=== PATIENT | male | born 1935 | race Caucasian/White ===

== ENCOUNTER 2017-12-12 11:01 | Inpatient (IN) | payer MEDICARE, BC ==
[~2017-12-12] VITALS: Ht 170.2 cm; Wt 82.0 kg
[~2017-12-12 11:01] MED LIST: ACIDOPHILUS PO; ALBUTERO3 IN; AUGMENTIN875TAB OR; AZITHROMYCIN250 MG PO; BAYER LOW DOSE81 MG PO; BIOTUSSIN PO; FISH OIL1000 MG PO; IPRATROPIU0.5 MG/3 M IN; MUCINEX600 MG OR; NEBULIZER COMPRESSOR; PREDNISONE10 MG PO; ROBITUSSIN AC10 ML PO; SPIRIVA IN; TAMSULOSIN HCL0.4 MG PO; VANTIN200 M1 PO
[2017-12-12 11:34] LABS: HEMATOCRIT 48.3 % (39.0-50.0); HEMOGLOBIN 15.1 g/dl (14.0-18.0); IMMATURE GRANULOCYTES 0.2 % (0.0-1.0); MEAN CELL VOLUME 94.7 fL CALC (80.0-100.0); MEAN CORPUSCULAR HGB 29.6 pG CALC (26.0-32.0); MEAN CORPUSCULAR HGB CONC 31.3 g/L CALC (32.0-36.0); NEUT# 7.36 thou/uL (1.82-7.42); RED BLOOD COUNT 5.1 mill/uL (4.70-6.10); RED CELL DISTRI WIDTH 13.3 % (11.5-15.5)
[2017-12-12 11:57] LABS: ANION GAP 17 (6-22 (CALC)); BUN 21 mg/dL (8-23); BUN/CREATININE RATIO 24 (12-20 (CALC)); CARBON DIOXIDE 32 mmol/l (22-30); CHLORIDE 101 mmol/l (95-108); CREATININE 0.9 mg/dL (0.7-1.3); GFR > 60 ML/MIN (>=60 (CALC)); GFR FOR AFR.AMER. > 60 ML/MIN (>=60 (CALC)); POTASSIUM 4.6 mmol/l (3.5-5.1); SODIUM 145 mmol/l (137-146)
[2017-12-12 12:58] LABS: INFLUENZA A NONE DETECTED (NONE DETECT); INFLUENZA B NONE DETECTED (NONE DETECT)
[2017-12-12 15:54] VITALS: BP 144/74
[2017-12-12 17:59] VITALS: BP 138/70
[2017-12-12 19:00] VITALS: BP 141/61
[2017-12-12 20:59] VITALS: BP 125/61
[2017-12-12 22:00] VITALS: BP 139/62
[2017-12-13] VITALS (11 sets, daily range): BP systolic 108–156; BP diastolic 47–97
[2017-12-14] VITALS (12 sets, daily range): BP systolic 114–154; BP diastolic 47–79
[2017-12-14 02:57] LABS: URINE BILIRUBIN - DIPSTICK NEGATIVE (NEGATIVE); URINE BLOOD DIPSTICK NEGATIVE (NEGATIVE); URINE COLOR YELLOW; URINE GLUCOSE - DIPSTICK NEGATIVE (NEGATIVE); URINE KETONE NEGATIVE (NEGATIVE); URINE LEUK ESTERASE NEGATIVE (NEGATIVE); URINE NITRITE - DIPSTICK NEGATIVE (Negative); URINE PROTEIN - DIPSTICK NEGATIVE (NEG-TRACE); URINE UROBILINOGEN - DIPSTICK 0.2 E.U./dL (0.2)
[2017-12-14 02:59] LABS: URINE CLARITY CLEAR
[2017-12-14 05:45] LABS: HEMATOCRIT 43.1 % (39.0-50.0); HEMOGLOBIN 13.6 g/dl (14.0-18.0); MEAN CELL VOLUME 94.3 fL CALC (80.0-100.0); MEAN CORPUSCULAR HGB 29.8 pG CALC (26.0-32.0); MEAN CORPUSCULAR HGB CONC 31.6 g/L CALC (32.0-36.0); RED BLOOD COUNT 4.57 mill/uL (4.70-6.10); RED CELL DISTRI WIDTH 12.8 % (11.5-15.5)
[2017-12-14 05:59] LABS: ANION GAP 16 (6-22 (CALC)); BUN 33 mg/dL (8-23); BUN/CREATININE RATIO 39 (12-20 (CALC)); CARBON DIOXIDE 32 mmol/l (22-30); CHLORIDE 98 mmol/l (95-108); CREATININE 0.9 mg/dL (0.7-1.3); GFR > 60 ML/MIN (>=60 (CALC)); GFR FOR AFR.AMER. > 60 ML/MIN (>=60 (CALC)); SODIUM 141 mmol/l (137-146)
[2017-12-14 06:04] LABS: POTASSIUM 5.2 mmol/l (3.5-5.1)
[2017-12-15] VITALS (12 sets, daily range): BP systolic 144–180; BP diastolic 59–96
[2017-12-15 05:40] LABS: HEMATOCRIT 42.8 % (39.0-50.0); HEMOGLOBIN 13.5 g/dl (14.0-18.0); MEAN CELL VOLUME 94.7 fL CALC (80.0-100.0); MEAN CORPUSCULAR HGB 29.9 pG CALC (26.0-32.0); MEAN CORPUSCULAR HGB CONC 31.5 g/L CALC (32.0-36.0); RED BLOOD COUNT 4.52 mill/uL (4.70-6.10); RED CELL DISTRI WIDTH 13.1 % (11.5-15.5)
[2017-12-15 05:58] LABS: ANION GAP 14 (6-22 (CALC)); BUN 29 mg/dL (8-23); BUN/CREATININE RATIO 38 (12-20 (CALC)); CARBON DIOXIDE 35 mmol/l (22-30); CHLORIDE 99 mmol/l (95-108); CREATININE 0.8 mg/dL (0.7-1.3); GFR > 60 ML/MIN (>=60 (CALC)); GFR FOR AFR.AMER. > 60 ML/MIN (>=60 (CALC)); SODIUM 142 mmol/l (137-146)
[2017-12-16] VITALS (14 sets, daily range): BP systolic 128–176; BP diastolic 66–92
[2017-12-17] VITALS (12 sets, daily range): BP systolic 119–162; BP diastolic 58–96
[2017-12-17 04:31] LABS: HEMATOCRIT 43.7 % (39.0-50.0); HEMOGLOBIN 13.9 g/dl (14.0-18.0); MEAN CORPUSCULAR HGB 29.9 pG CALC (26.0-32.0); MEAN CORPUSCULAR HGB CONC 31.8 g/L CALC (32.0-36.0); RED BLOOD COUNT 4.65 mill/uL (4.70-6.10); RED CELL DISTRI WIDTH 12.9 % (11.5-15.5)
[2017-12-17 04:41] LABS: BUN 30 mg/dL (8-23); BUN/CREATININE RATIO 35 (12-20 (CALC)); CHLORIDE 96 mmol/l (95-108); CREATININE 0.9 mg/dL (0.7-1.3); GFR > 60 ML/MIN (>=60 (CALC)); GFR FOR AFR.AMER. > 60 ML/MIN (>=60 (CALC)); POTASSIUM 4.6 mmol/l (3.5-5.1); SODIUM 144 mmol/l (137-146)
[2017-12-17 04:48] LABS: ANION GAP 14 (6-22 (CALC)); CARBON DIOXIDE 39 mmol/l (22-30)
[2017-12-18] VITALS (12 sets, daily range): BP systolic 132–169; BP diastolic 60–96
[2017-12-18 05:30] LABS: ANION GAP 13 (6-22 (CALC)); BUN 27 mg/dL (8-23); BUN/CREATININE RATIO 33 (12-20 (CALC)); CHLORIDE 95 mmol/l (95-108); CREATININE 0.8 mg/dL (0.7-1.3); GFR > 60 ML/MIN (>=60 (CALC)); GFR FOR AFR.AMER. > 60 ML/MIN (>=60 (CALC)); POTASSIUM 4.6 mmol/l (3.5-5.1); SODIUM 143 mmol/l (137-146)
[2017-12-18 05:39] LABS: CARBON DIOXIDE 40 mmol/l (22-30)
[2017-12-18 05:53] LABS: HEMATOCRIT 44.3 % (39.0-50.0); HEMOGLOBIN 14.3 g/dl (14.0-18.0); MEAN CELL VOLUME 92.5 fL CALC (80.0-100.0); MEAN CORPUSCULAR HGB 29.9 pG CALC (26.0-32.0); MEAN CORPUSCULAR HGB CONC 32.3 g/L CALC (32.0-36.0); RED BLOOD COUNT 4.79 mill/uL (4.70-6.10); RED CELL DISTRI WIDTH 12.5 % (11.5-15.5)
[2017-12-19] VITALS (11 sets, daily range): BP systolic 138–173; BP diastolic 66–88
[2017-12-20 00:22] VITALS: BP 153/74
[2017-12-20 04:10] VITALS: BP 150/71
[2017-12-20 05:41] LABS: HEMATOCRIT 45.8 % (39.0-50.0); HEMOGLOBIN 14.9 g/dl (14.0-18.0); MEAN CELL VOLUME 92.2 fL CALC (80.0-100.0); MEAN CORPUSCULAR HGB CONC 32.5 g/L CALC (32.0-36.0); RED BLOOD COUNT 4.97 mill/uL (4.70-6.10); RED CELL DISTRI WIDTH 12.6 % (11.5-15.5)
[2017-12-20 05:50] LABS: BUN 33 mg/dL (8-23); BUN/CREATININE RATIO 37 (12-20 (CALC)); CHLORIDE 95 mmol/l (95-108); CREATININE 0.9 mg/dL (0.7-1.3); GFR > 60 ML/MIN (>=60 (CALC)); GFR FOR AFR.AMER. > 60 ML/MIN (>=60 (CALC)); MAGNESIUM 2.4 mg/dL (1.6-2.3); POTASSIUM 4.3 mmol/l (3.5-5.1); SODIUM 144 mmol/l (137-146)
[2017-12-20 05:57] LABS: ANION GAP 14 (6-22 (CALC)); CARBON DIOXIDE 39 mmol/l (22-30)
[2017-12-20 07:35] VITALS: BP 132/66
[2017-12-20 15:45] VITALS: BP 133/52
[2017-12-20 19:18] VITALS: BP 141/65
[2017-12-20 23:57] VITALS: BP 164/80
[2017-12-21 04:54] VITALS: BP 143/77
[2017-12-21 07:12] LABS: HEMOGLOBIN 14.6 g/dl (14.0-18.0); IMMATURE GRANULOCYTES 5.5 % (0.0-1.0); MEAN CELL VOLUME 91.5 fL CALC (80.0-100.0); MEAN CORPUSCULAR HGB 29.7 pG CALC (26.0-32.0); MEAN CORPUSCULAR HGB CONC 32.4 g/L CALC (32.0-36.0); PLATELET COUNT 138 thou/uL (130-400); RED BLOOD COUNT 4.92 mill/uL (4.70-6.10); RED CELL DISTRI WIDTH 12.7 % (11.5-15.5)
[2017-12-21 07:24] LABS: ANION GAP 12 (6-22 (CALC)); BUN 33 mg/dL (8-23); BUN/CREATININE RATIO 41 (12-20 (CALC)); CARBON DIOXIDE 38 mmol/l (22-30); CHLORIDE 99 mmol/l (95-108); CREATININE 0.8 mg/dL (0.7-1.3); GFR > 60 ML/MIN (>=60 (CALC)); GFR FOR AFR.AMER. > 60 ML/MIN (>=60 (CALC)); POTASSIUM 4.2 mmol/l (3.5-5.1); SODIUM 144 mmol/l (137-146)
[2017-12-21 07:34] LABS: MANUAL DIFFERENTIAL YES
[2017-12-21 08:05] VITALS: BP 144/77
[2017-12-21 11:28] VITALS: BP 169/72
[2017-12-21] MEDS ORDERED: PREDNISONE10 MG PO (12:10)
[2017-12-21] MEDS ORDERED: DILTIAZEM HCL180 MG PO (12:10)
[2017-12-21] MEDS ORDERED: LEVAQUIN750 MG PO (12:10)
[2017-12-21] MEDS ORDERED: FLORASTOR250 M1 PO (12:10)
== END 2017-12-21 14:47 | DRG 189 ==
LOC: ED 11:01 → ED-I 14:36 → ED 14:51 → ICU 14:52 → MS2 12-19 13:03
PROVIDERS: Family Medicine; Nurse Practitioner Family; ADMIT Internal Medicine; ATTEND Internal Medicine
PROC: 5A09357 Assistance with Respiratory Ventilation, Less than 24 Consecutive Hours, Continuous Positive Airway Pressure (ICD-10-PCS; principal; 2017-12-12)
DX: J96.21 Acute and chronic respiratory failure with hypoxia (principal); J44.1 Chronic obstructive pulmonary disease with (acute) exacerbation; Z99.81 Dependence on supplemental oxygen; J96.22 Acute and chronic respiratory failure with hypercapnia; G47.33 Obstructive sleep apnea (adult) (pediatric); I49.1 Atrial premature depolarization; I44.7 Left bundle-branch block, unspecified; R00.0 Tachycardia, unspecified; Z85.118 Personal history of other malignant neoplasm of bronchus and lung; Z92.3 Personal history of irradiation; Z87.891 Personal history of nicotine dependence; Z92.21 Personal history of antineoplastic chemotherapy
CPT/HCPCS: J1650

== ENCOUNTER 2019-01-20 14:25 | Inpatient (IN) | payer MEDICARE, BC ==
[~2019-01-20] VITALS: Ht 170.2 cm; Wt 81.7 kg
[2019-01-20] VITALS (8 sets, daily range): BP systolic 108–170; BP diastolic 48–89
[~2019-01-20 14:25] MED LIST changes: +DILTIAZEM HCL180 MG PO; +FLORASTOR250 M1 PO; +LEVAQUIN750 MG PO
--- NOTE | 2019-01-20 14:44 | NUR ---
PATIENT TO ROOM VIA WHEELCHAIR RESPIRATORY PAGED OVERHEAD AND PHYSICIAN AT BEDSIDE FOR EVAL
--- NOTE | 2019-01-20 14:49 | NUR ---
PT STATES THAT HE HAD WORSENING SOB BEGINING LAST NIGHT. PT IS USUALLY ON HOME O2 AT 3 LPM. PT IS AOX4. PT HAS AUDIBLE RHONCHI IN RIGHT LOBE, DENIES ANY C/P, N/V OR WEAKNESS.
[2019-01-20 15:03] LABS: HEMATOCRIT 46.7 % (39.0-50.0); HEMOGLOBIN 14.8 g/dl (14.0-18.0); IMMATURE GRANULOCYTES 0.3 % (0.0-5.0); MEAN CELL VOLUME 93.2 fL CALC (80.0-100.0); MEAN CORPUSCULAR HGB 29.5 pG CALC (26.0-32.0); MEAN CORPUSCULAR HGB CONC 31.7 g/L CALC (32.0-36.0); NEUT# 7.94 thou/uL (1.82-7.42); RED BLOOD COUNT 5.01 mill/uL (4.70-6.10); RED CELL DISTRI WIDTH 13.7 % (11.5-15.5)
[2019-01-20 15:26] LABS: ALBUMIN 4.4 g/dL (3.2-5.0); ALKALINE PHOSPHATASE 63 u/l (38-126); ANION GAP 14 (6-22 (CALC)); BILIRUBIN, TOTAL 0.5 mg/dL (0.0-1.4); BUN 17 mg/dL (8-23); BUN/CREATININE RATIO 20 (12-20 (CALC)); CARBON DIOXIDE 33 mmol/l (22-30); CHLORIDE 99 mmol/l (95-108); CREATININE 0.8 mg/dL (0.7-1.3); GFR > 60 ML/MIN (>=60 (CALC)); GFR FOR AFR.AMER. > 60 ML/MIN (>=60 (CALC)); POTASSIUM 4.3 mmol/l (3.5-5.1); SGOT/AST 24 u/l (19-48); SODIUM 141 mmol/l (137-146); TOTAL PROTEIN 7.1 g/dL (6.3-8.2)
--- NOTE | 2019-01-20 15:49 | NUR ---
PT CONTINUING ON BIPAP- TOLERATING WELL
--- NOTE | 2019-01-20 16:49 | NUR ---
REPORT CALLED TO ICU, NORBERT BOYCE ACCEPTED PT
--- NOTE | 2019-01-20 17:00 | NUR ---
male pt received to ICU bed 6 via stretcher accompanied by Julian Brown RN in stable condition; ambulatory to scale then bed with steady gait; weight obtained via bed scale; admission assessment completed at this time; pt alert and oriented; denies pain; no n/v noted; c/c of increase sob starting approx 1300; resp even and unlabored; lungs noted with rhonchi throughout; skin color wnl; o2 per nc at 4L; roll panner cough noted; hr reg; wk pedal pulses; no edema noted; sr/ivcd on monitor; abd soft/distended with bs present; no bm noted per press writer; no urine to inspect at this time; urinal placed at this time; pt noted with brief/ admits to stress incontinence; #20 to rac flushed and patent; no redness or edema noted at site; bruising/abrasion noted to lfa with small scab intact; pt oriented to bed and call light system; bipap remains at bedside on standby; call light within reach; will continue to monitor
--- NOTE | 2019-01-20 17:07 | NUR ---
Admission Note Report Given to: NORBERT BOYCE Transported by: Wheelchair X Stretcher Transported with: X Nurse Transporter X Patent IV X O2 X Food And Drug Inspector TRANSPORTED TO ICU 6 WITHOUT INCIDENT
--- NOTE | 2019-01-20 17:08 | NUR ---
PT ON 3L NC AT HOME DURING HRS OF SLEEP
--- NOTE | 2019-01-20 17:36 | NUR ---
meal provided; pt denies needs; will continue to monitor
--- NOTE | 2019-01-20 18:03 | NUR ---
awake in bed eating dinner; no apparent distress noted; pt offers no complaints; iv intact; abt infusing without complication; no redness or edema noted at site; sr/pvc on monitor; call light within reach
--- NOTE | 2019-01-20 19:15 | NUR ---
awake. denies acute resp diff. rhonchi bilat. o2 cont. bus monitor shows sinus rhythm ivcd pvcs. #22 rac saline lock. po fluids taken fair. voids per bsc. fall precautions cont.
--- NOTE | 2019-01-20 20:10 | NUR ---
stood to void & became sob. sao2 85%. requested bipap. rt notified & bipap was placed.
--- NOTE | 2019-01-20 22:00 | NUR ---
eyes closed. bipap cont. conveyor monitor shows sinus rhythm ivcd pvcs.
[2019-01-21] VITALS (23 sets, daily range): BP systolic 109–156; BP diastolic 51–83
--- NOTE | 2019-01-21 00:01 | NUR ---
eyes closed. no apparent distress. bipap cont.
--- NOTE | 2019-01-21 02:10 | NUR ---
stood to void. jos well. no sob. bipap cont.
--- NOTE | 2019-01-21 04:30 | NUR ---
lab here. blood drawn.
[2019-01-21 05:13] LABS: HEMATOCRIT 43.1 % (39.0-50.0); HEMOGLOBIN 13.8 g/dl (14.0-18.0); IMMATURE GRANULOCYTES 0.5 % (0.0-5.0); MEAN CELL VOLUME 93.3 fL CALC (80.0-100.0); MEAN CORPUSCULAR HGB 29.9 pG CALC (26.0-32.0); NEUT# 6.12 thou/uL (1.82-7.42); RED BLOOD COUNT 4.62 mill/uL (4.70-6.10); RED CELL DISTRI WIDTH 13.3 % (11.5-15.5)
[2019-01-21 05:29] LABS: ALBUMIN 3.8 g/dL (3.2-5.0); ALKALINE PHOSPHATASE 54 u/l (38-126); AMYLASE 41 u/l (30-110); BILIRUBIN, TOTAL 0.4 mg/dL (0.0-1.4); BUN 16 mg/dL (8-23); BUN/CREATININE RATIO 22 (12-20 (CALC)); CARBON DIOXIDE 31 mmol/l (22-30); CHLORIDE 99 mmol/l (95-108); CREATININE 0.7 mg/dL (0.7-1.3); GFR > 60 ML/MIN (>=60 (CALC)); GFR FOR AFR.AMER. > 60 ML/MIN (>=60 (CALC)); LIPASE 63 u/l (23-300); MAGNESIUM 1.9 mg/dL (1.6-2.3); SGOT/AST 18 u/l (19-48); SODIUM 138 mmol/l (137-146); TOTAL PROTEIN 6.2 g/dL (6.3-8.2)
[2019-01-21 05:33] LABS: ANION GAP 13 (6-22 (CALC)); POTASSIUM 5.3 mmol/l (3.5-5.1)
--- NOTE | 2019-01-21 06:20 | NUR ---
awake. bipap removed per request. nc on.
--- NOTE | 2019-01-21 07:10 | NUR ---
pt awake in bed; no apparent distress noted; pt offers no complaints; assessment completed at this time; pt alert and oriented; denies pain; no n/v noted; denies sob; resp even and unlabored; lungs coarse with wheezing throughout and rhonchi; skin color wnl; o2 per nc at 3L; recreation aide loose cough noted; sob noted with exertion; hr reg; wk pedal pulses; no edema noted; sr/ivcd on monitor; abd soft/ distended with bs present; no bm noted; pt admits to voiding without complication; no urine to inspect at this time; urinal at bedside; #20 in rac flushed and patent; no redness or edema noted at site; bruise/small scab noted to lfa; plan of care/am meds explained; call light within reach; will continue to monitor
--- NOTE | 2019-01-21 07:28 | NUR ---
VIK[facility] STANDBY. [facility].
--- NOTE | 2019-01-21 08:09 | NUR ---
pt awake in bed watching tv; no distress noted; o2 per nc; sr on monitor; iv intact; pt offers no complaints; call light within reach; will continue to monitor
--- NOTE | 2019-01-21 09:55 | NUR ---
Dr Ellis present at bedside to assess pt and discuss plan of care
--- NOTE | 2019-01-21 10:06 | NUR ---
pt awake in bed; no apparent distress noted; pt offers no complaints; o2 per nc; iv intact; sr on monitor; call light within reach; will continue to monitor
--- NOTE | 2019-01-21 11:20 | NUR ---
sign other present at bedside; med list obtained and copy placed on chart; pt denies needs; o2 per nc; call light within reach; will continue to monitor
[2019-01-21] MEDS ORDERED: PERFOROMIS20 MCG/2 M NEB (11:57)
[2019-01-21] MEDS ORDERED: BUDESONID2 IN (12:02)
--- NOTE | 2019-01-21 12:07 | NUR ---
awake in bed; pt offers no complaints; iv intact; o2 per nc; sign other at bedside; st/ivcd on monitor; pt deny needs; call light within reach; will continue to monitor
--- NOTE | 2019-01-21 14:20 | NUR ---
awake in bed; visitor present at bedside; pt denies needs; iv flushed and patent; sr/ivcd on monitor; o2 per nc; call light within reach; will continue to monitor
--- NOTE | 2019-01-21 16:07 | NUR ---
awake in bed; offers no complaints; denies needs; po fluids provided; iv intact and patent; abt infusing without complication; sr/ivcd on monitor; o2 per nc; no resp distress noted; call light within reach; will continue to monitor
--- NOTE | 2019-01-21 16:33 | NUR ---
am care offer/declined at this time; pt wishes to watch basketball game
--- NOTE | 2019-01-21 18:15 | NUR ---
awake in bed; visitor at bedside; pt offers no complaints; no distress noted; o2 per nc; iv intact; sr/ivcd/ occ pvc on monitor; call light within reach
--- NOTE | 2019-01-21 19:38 | NUR ---
Patient resting in bed. Family at bedside. V/S wnl. Breath sounds Ronchi noted in all lobes, diminished in the basis. Patient has COPD and is on O2 @3l/min. Abdomen soft with active bowel sounds in all 4 quadrants. No complaints of pain. No S&S of distress. Will continue to monitor patient progress.
--- NOTE | 2019-01-21 21:57 | NUR ---
Patient resting in bed. No complaints of pain. V/S wnl. Solumedrol given. Patient tolerated well. Will continue to monitor patient progress.
[2019-01-22] VITALS (19 sets, daily range): BP systolic 115–158; BP diastolic 52–88
--- NOTE | 2019-01-22 00:09 | NUR ---
Patient resting in bed. No complaints of pain. No S&S of distress. No change in previous assessment. Will continue to monitor patient progress.
--- NOTE | 2019-01-22 02:19 | NUR ---
Patient resting in bed. No complaints of pain. V/S wnl. Patient was experiencing some shortness of breath with wheezing. Duo neb given patient responded well. No S&S of distress. Will continue to monitor patient progress.
[2019-01-22 05:30] LABS: ANION GAP 16 (6-22 (CALC)); BUN 26 mg/dL (8-23); BUN/CREATININE RATIO 32 (12-20 (CALC)); CARBON DIOXIDE 27 mmol/l (22-30); CHLORIDE 98 mmol/l (95-108); CREATININE 0.8 mg/dL (0.7-1.3); GFR > 60 ML/MIN (>=60 (CALC)); GFR FOR AFR.AMER. > 60 ML/MIN (>=60 (CALC)); POTASSIUM 4.5 mmol/l (3.5-5.1); SODIUM 137 mmol/l (137-146)
--- NOTE | 2019-01-22 06:19 | NUR ---
Patient is resting in bed. No complaints of pain. Patient is wheezy with crackles and rhonci noted. Patient is coughing up blood tinged thin sputum. We discussed holding the lovenox because he wants to keep it to show the doctor. No other S&S of distress. Will continue to monitor patient progress.
--- NOTE | 2019-01-22 07:10 | NUR ---
awake in bed; no apparent distress noted; pt offers no complaints; assessment completed at this time; pt alert and oriented; denies pain; no n/v noted; resp slightly labored; lungs with rhonchi throughout; skin color wnl; o2 per nc at 3L; exertional sob noted; red tinged sputum/saliva noted at bedside; hr reg; wk pedal pulses; no edema noted; sr/ivcd on monitor; abd soft/ distended with bs present; no bm noted at this time; no urine to inspect; urinal at bedside; #20 to rac flushed and patent; no redness or edema noted at site; plan of care/ meds/ am care explained; assist to chair for am care; call light within reach; will continue to monitor
--- NOTE | 2019-01-22 08:09 | NUR ---
awake; remains up to chair; no apparent distress noted; o2 per nc; st/ivcd on monitor; iv intact; call light within reach; will continue to monitor
--- NOTE | 2019-01-22 09:07 | NUR ---
remain up to chair; am meds explained; pt expresses concerns of blood "maybe being to low" and that's why he coughing red sputum; lovenox held at this time; will continue to monitor
--- NOTE | 2019-01-22 09:45 | NUR ---
awake; assist back to bed; monitoring attachments connected; o2 per; exertional sob noted
--- NOTE | 2019-01-22 10:00 | NUR ---
resting in bed with eyes closed; no apparent distress noted; resp unlabored; o2 per nc; sr/ivcd on monitor; call light within reach; will continue to monitor
--- NOTE | 2019-01-22 12:05 | NUR ---
awake in bed; no apparent distress noted; pt offers no complaints; visitor at bedside; o2 per nc; iv intact; afebrile; sr/ivcd on monitor; pt deny needs; call light within reach; will continue to monitor
--- NOTE | 2019-01-22 12:25 | NUR ---
Dr Ellis present at bedside to assess pt and discuss plan of care; health technical writer informed MD of pt concern involving lovenox; verbal order to hold this am dose
--- NOTE | 2019-01-22 13:57 | NUR ---
awake in bed; visitor at bedside; no apparent distress noted; pt offers no complaints; blood tinged sputum (saliva) collected; additional sample cup provided if sample rejected; pt encouraged to cough deeply to produce sputum and not saliva; o2 per nc; sr/ivcd on monitor; iv flushed and patent; plan of care including ct scan explained; will continue to monitor
--- NOTE | 2019-01-22 16:00 | NUR ---
resting in bed with eyes closed; visitor present at bedside; no apparent distress noted; resp slightly labored; o2 per nc; iv intact; no redness or edema noted; sr/ivcd on monitor; call light within reach; will continue to monitor
--- NOTE | 2019-01-22 16:13 | NUR ---
PT OUT THE DOOR WITH RN FOR SHARONDA. STAYED IN PTS ROOM.
--- NOTE | 2019-01-22 16:27 | NUR ---
returned to unit from ct scan via wc with portable o2 in stable condition; monitoring attachments reconnected; will continue to monitor
--- NOTE | 2019-01-22 18:05 | NUR ---
awake in bed watching television; offers no complaints; no apparent distress noted; sr/ivcd on monitor; iv patent; o2 per nc; call light within reach
--- NOTE | 2019-01-22 19:05 | NUR ---
BEDSIDE REPORT RECEIVED FROM AUSTEN MEYERS. PT RESTING IN BED HIGH FOWLERS WATCHING TV; ALERT AND ORIENTED. DENIES PAIN. RESPIRATONS ARE EVEN AND SLIGTLY LABORED ON OXYGEN 3L VIA NC; PT STATES THIS IS HIS NORMAL BREATHING PATTERN. RHYTHM CHANGE NOTED ON TELEMETRY; EKG PERFORMED; REPORTS SINUS RHYTHM WITH SHORT GA INTERVAL. PLAN OF CARE REVIEWED. PT ENCOURAGED TO VERBALIZE CONCERNS. STATES UNDERSTANDING. SAFETY MEASURES IN PLACE. CALL LIGHT WITHIN REACH.
--- NOTE | 2019-01-22 19:35 | NUR ---
ASSESSMENT COMPLETE. LUNGS WITH RHONCHI THROUGHOUT AND WET PRODUCTIVE COUGH; BLOODY, THIN, FROTHY SPIT. ABDOMEN DISTENDED AND SLIGHTLY FIRM. KRISTOPHER HOSE INTACT BILATERALLY; NO NOTED EDEMA.
--- NOTE | 2019-01-22 21:29 | NUR ---
PT DECLINED BREATHING TREATMENT AT THIS TIME; REPORTS THAT HE FEELS IT THE TREATMENT CAUSES MORE BLOOD IN HIS SPUTUM AND STATES, "LOOK, I STILL HAVE BLOOD FROM THE LAST TREATMENT." HOLDING FOR NOW.
--- NOTE | 2019-01-22 23:15 | NUR ---
PT RESTING IN BED SEMI FOWLERS WATCHING TV; ALERT AND ORIENTED. IV SITE APPEARS HEALTHY AND FLUSHES. USING BEDSIDE URINAL TO VOID.
[2019-01-23] VITALS (14 sets, daily range): BP systolic 130–184; BP diastolic 52–72
--- NOTE | 2019-01-23 01:05 | NUR ---
PT RESTING WITH EYES CLOSED AND NO SIGNS OF DISTRESS. RESPIRATIONS EVEN AND UNLABORED AT REST WITH OXYGEN IN PLACE. SINUS RHYTM ON TELEMTRY WITH IVCD, PVC'S AND SHORTENED MA INTERVAL RATE OF 78. SAFETY MEASURES IN PLACE. CALL LIGHT WITHIN REACH. .
--- NOTE | 2019-01-23 03:26 | NUR ---
HEART RATE DECREASED INTO 30'S AND 40'S WHILE ASLEEP; PT ASMYPTOMATIC. CURRENTLY 45 BPM. OXYGEN SATURATION 95% ON 3L O2 VIA NC.
--- NOTE | 2019-01-23 05:27 | NUR ---
NO ACUTE CHANGES IN CONDITION THROUGHOUT THE NIGHT. HEART RATE CURRENTLY IN THE 50'S. PT REMAINS A ONE PERSON ASSIST. USES CALL LIGHT PRN FOR ASSISTANCE. SAFETY MEASURES IN PLACE. CALL LIGHT WITHIN REACH.
--- NOTE | 2019-01-23 05:55 | NUR ---
PT DECLINED AM BREATHING TREATMENT STATING THAT HIS BLEEDING HAS NOT SUBSIDED AND HE DOES NOT WANT TO MAKE IT WORSE. RT DISCUSSED WITH PT INDICATION AND SIDE EFFECTS OF TREATMENT AND PT STILL DECLINED. CONTINUES TO HAVE BLOOD TINGED FROTHY SPIT; 30ML EMPTIED FROM CONTAINER. PT RESPIRATIONS ARE AUDIBLY WET AND LUNGS HAVE RHONCHI THROUGHOUT. RESPIRATIONS ARE EVEN AND UNLABORED. COFFEE PROVIDED PER PT REQUEST.
--- NOTE | 2019-01-23 07:00 | NUR ---
pt awake in bed; offers no complaints; assessment completed at this time; pt alert and oriented; denies pain; no n/v noted; resp labored; lungs with rhonchi, crackles, wheezing throughout; skin color wnl; o2 per nc at 3L; o2 sat 95%; bipap encouraged but declined per database report writer at this time; pt states "I will let you know if it gets worse"; prod cough of bloody/thin/copious secretions; hr reg; weak pedal pulses; no edema noted; sb/ivcd on monitor; bilat knee high dk hose intact; abd soft/distended with bs present; pt admits to bm 01/22; voiding clear yellow urine without complication; urinal at bedside; #20 flushed and patent to rac; no redness or edema noted at site; plan of care/ am meds explained; call light within reach; will continue to monitor
--- NOTE | 2019-01-23 07:35 | NUR ---
pt photovoltaic installation technician light; reporting increased difficulty breathing; o2 sat 94% on 3L; labored respirations; RT notified to place to on bipap/ abg to be obtained; will continue to monitor
--- NOTE | 2019-01-23 08:15 | NUR ---
awake in bed; bipap intact with settings of 15/5, rate 16, FiO2 40%; pt admits to improved breathing; sb/junctional 52 on monitor; iv intact; call light within reach; will continue to monitor
--- NOTE | 2019-01-23 09:26 | NUR ---
resting with eyes closed; easily aroused; am meds explained; cardizem held d/t bradycardia; pt voices his request to decline neb tx; pt is concerned he is coughing up more blood after neb tx; importance of nebs explained: bronchodilator/sob/copd; pt also informed per per this technical publications writer that duoneb is one of his home medications; continues to decline at this time; technical publications writer to speak with this am; bipap continued; will continue to monitor
--- NOTE | 2019-01-23 10:00 | NUR ---
awake; bipap continues; resp remain slight labored/improved since bipap; iv intact; deny needs; call light within reach; will continue to monitor
--- NOTE | 2019-01-23 10:07 | NUR ---
Dr Villagomez on unit; this journalists and other writers spoke with MD in detail in regards personal observation of decline in conidtion; informed MD pt is refusing neb tx due to increase in hemoptysis (specimen left at bedside for MD to observe), informed MD of bradycardia/junctional rhythm with HR dropping to as low as 37 during the night, informed MD of resp distress requiring re initiation of bipap;
--- NOTE | 2019-01-23 10:15 | NUR ---
Dr Villagomez present at bedside to assess pt and discuss plan of care; pt agree with need for pulmonology/transfer; bipap continues; plan of care explained; will continue to monitor
--- NOTE | 2019-01-23 11:25 | NUR ---
s/o present at bedside; lunch held at this time
--- NOTE | 2019-01-23 12:01 | NUR ---
awake in bed; updated on plan of care; junctional 51 on monitor; bipap maintained; resp labored/rate 31; o2 sat wnl; iv intact; s/o present at bedside plan of care including need for transfer explained; call light within reach; will continue to monitor
--- NOTE | 2019-01-23 12:08 | NUR ---
call placed to [facility]; information provided to Radha; awaiting acceptance from Dr Arzate; Radha to call this blog writer with after MD acceptance is obtained
--- NOTE | 2019-01-23 12:35 | NUR ---
call received from Dr Villagomez; Dr Arzate has agreed with acceptance for ICU bed at [facility]; Dr Villagomez informed per this engineering technical writer [facility] does NOT transport BIPAP:; order received to confirm
--- NOTE | 2019-01-23 12:38 | NUR ---
[facility] called per this account underwriter; spoke with Josesito; Josesito confirmed [facility] does NOT transport BIPAP pt unless they have their own maching; [facility] able to transport in cpap mode
--- NOTE | 2019-01-23 12:45 | NUR ---
call placed to Dr Villagomez; entry writer informed of conversation with Louis; orders received to convert pt to oxygen via nc and monitor; if pt able to tolerate o2 transfer via ground transport; will continue to monitor
--- NOTE | 2019-01-23 12:53 | NUR ---
call received from [facility] Nicho arreola assigment 249 received; facesheet faced; will continue to monitor
--- NOTE | 2019-01-23 13:02 | NUR ---
1250- 1302 pt removed from bipap as per MD request; placed on nc at 3L; 1302- o2 sat remains stable at 94-96%; resp rate noted at 44 and labored; Dr Villagomez notified of this information; bipap reapplied; pt to transfer via [facility] with agreeance; will continue to monitor
--- NOTE | 2019-01-23 13:17 | NUR ---
[facility] Tia called per typewriter operator automatic; information provided; ETA 16 minutes
--- NOTE | 2019-01-23 13:18 | NUR ---
[facility] Jaelyn called per sheet writer; informed pt will be transported via air; will notify jaelyn on departure from [facility]
--- NOTE | 2019-01-23 13:20 | NUR ---
report called to [facility] Priscilla; direct number provided to this physician underwriter for any additional questions
--- NOTE | 2019-01-23 13:41 | NUR ---
[facility] team on unit; report given;
--- NOTE | 2019-01-23 14:05 | NUR ---
pt discharged with [facility] in stable condition; sign other with pt belongings;
--- NOTE | 2019-01-23 14:08 | NUR ---
[facility] called per fha underwriter; spoke with Radha; ETA 16-18 minutes
--- NOTE | 2019-01-25 14:22 | NUR ---
Final sputum culture results faxed to Aziza Ruelas at [facility] ([phone]).
== END 2019-01-23 14:05 | DRG 193 ==
LOC: ED 14:25 → ED-I 16:09 → ED 16:23 → ICU 16:24
PROVIDERS: Emergency Medicine; Internal Medicine; ADMIT Internal Medicine Nephrology; ATTEND Internal Medicine Nephrology
PROC: 5A09357 Assistance with Respiratory Ventilation, Less than 24 Consecutive Hours, Continuous Positive Airway Pressure (ICD-10-PCS; principal; 2019-01-20)
PROC: 5A09357 Assistance with Respiratory Ventilation, Less than 24 Consecutive Hours, Continuous Positive Airway Pressure (ICD-10-PCS; 2019-01-23)
DX: J18.9 Pneumonia, unspecified organism (principal); J96.22 Acute and chronic respiratory failure with hypercapnia; J96.21 Acute and chronic respiratory failure with hypoxia; R04.2 Hemoptysis; J43.9 Emphysema, unspecified; I10 Essential (primary) hypertension; I49.5 Sick sinus syndrome; D63.8 Anemia in other chronic diseases classified elsewhere; Z99.81 Dependence on supplemental oxygen; Z85.118 Personal history of other malignant neoplasm of bronchus and lung; Z92.3 Personal history of irradiation; Z87.01 Personal history of pneumonia (recurrent); Z87.891 Personal history of nicotine dependence; Z92.21 Personal history of antineoplastic chemotherapy
CPT/HCPCS: J1650; Q9967; S0164

== ENCOUNTER 2019-12-18 22:50 | Observation (INO) | payer MEDICARE, BC ==
[~2019-12-18] VITALS: Ht 170.2 cm; Wt 81.2 kg
[~2019-12-18 22:50] MED LIST changes: +BUDESONID2 IN; +PERFOROMIS20 MCG/2 M NEB
[2019-12-18 23:48] LABS: HEMATOCRIT 40.9 % (39.0-50.0); HEMOGLOBIN 12.8 g/dl (14.0-18.0); IMMATURE GRANULOCYTES 0.3 % (0.0-5.0); MEAN CELL VOLUME 92.5 fL CALC (80.0-100.0); MEAN CORPUSCULAR HGB CONC 31.3 g/L CALC (32.0-36.0); NEUT# 4.85 thou/uL (1.82-7.42); RED BLOOD COUNT 4.42 mill/uL (4.70-6.10); RED CELL DISTRI WIDTH 12.8 % (11.5-15.5)
[2019-12-18 23:58] LABS: ALBUMIN 4.2 g/dL (3.2-5.0); ALKALINE PHOSPHATASE 63 u/l (38-126); ANION GAP 13 (6-22 (CALC)); BILIRUBIN, TOTAL 0.4 mg/dL (0.0-1.4); BUN 20 mg/dL (8-23); BUN/CREATININE RATIO 25 (12-20 (CALC)); CARBON DIOXIDE 39 mmol/l (22-30); CHLORIDE 94 mmol/l (95-108); CREATININE 0.8 mg/dL (0.7-1.3); GFR > 60 ML/MIN (>=60 (CALC)); GFR FOR AFR.AMER. > 60 ML/MIN (>=60 (CALC)); POTASSIUM 4.6 mmol/l (3.5-5.1); SGOT/AST 19 u/l (19-48); SODIUM 141 mmol/l (137-146); TOTAL PROTEIN 7.2 g/dL (6.3-8.2)
[2019-12-19 11:27] VITALS: BP 148/88
[2019-12-19 15:23] VITALS: BP 131/54
[2019-12-19 19:08] VITALS: BP 114/55
[2019-12-20 00:14] VITALS: BP 124/55
[2019-12-20 04:32] VITALS: BP 122/49
[2019-12-20 05:27] LABS: HEMATOCRIT 36.6 % (39.0-50.0); HEMOGLOBIN 11.7 g/dl (14.0-18.0); IMMATURE GRANULOCYTES 0.5 % (0.0-5.0); MEAN CELL VOLUME 90.8 fL CALC (80.0-100.0); NEUT# 10.06 thou/uL (1.82-7.42); RED BLOOD COUNT 4.03 mill/uL (4.70-6.10); RED CELL DISTRI WIDTH 12.6 % (11.5-15.5)
[2019-12-20 05:52] LABS: ANION GAP 10 (6-22 (CALC)); BUN 30 mg/dL (8-23); BUN/CREATININE RATIO 41 (12-20 (CALC)); CARBON DIOXIDE 37 mmol/l (22-30); CHLORIDE 95 mmol/l (95-108); CREATININE 0.7 mg/dL (0.7-1.3); GFR > 60 ML/MIN (>=60 (CALC)); GFR FOR AFR.AMER. > 60 ML/MIN (>=60 (CALC)); POTASSIUM 4.8 mmol/l (3.5-5.1); SODIUM 137 mmol/l (137-146)
[2019-12-20 08:00] VITALS: BP 147/57
[2019-12-20 10:40] VITALS: BP 137/60
[2019-12-20] MEDS ORDERED: LEVAQUIN750 MG PO (12:04)
[2019-12-20] MEDS ORDERED: PREDNISONE10 MG PO (12:04)
== END 2019-12-20 15:47 | disposition home or self-care (01) ==
LOC: ED 22:50 → ED-I 12-19 00:19 → ED 12-19 00:46 → ED-I 12-19 00:47 → MS2 12-19 14:01
PROVIDERS: ADMIT Internal Medicine; ATTEND Internal Medicine
DX: J43.9 Emphysema, unspecified (principal); J96.10 Chronic respiratory failure, unspecified whether with hypoxia or hypercapnia; Z85.118 Personal history of other malignant neoplasm of bronchus and lung; Z92.3 Personal history of irradiation; Z87.891 Personal history of nicotine dependence; Z99.81 Dependence on supplemental oxygen; R06.02 Shortness of breath
CPT/HCPCS: G0378